=== PATIENT | male | born 1995 | race Caucasian/White ===

== ENCOUNTER 2021-05-22 16:24 | Emergency (ER) | payer SELFPAY ==
[~2021-05-22] VITALS: Ht 172.7 cm; Wt 90.7 kg
[2021-05-22 16:32] VITALS: BP 135/64
--- NOTE | 2021-05-22 16:36 | NUR ---
SEEN AND EXAMINED BY MADHURI CHIU.
[2021-05-22] MEDS ORDERED: TDAP [DIPH/PERTUSSIS/TET] 0.5 ML VIAL IM ONE ×2 (16:53→17:00)
[2021-05-22] MEDS ORDERED: LIDOCAINE 1%-EPI 1:100,000 20 ML VIAL TP ONE (17:00)
--- NOTE | 2021-05-22 17:04 | NUR ---
Patient discharged to home in stable condition. Written and verbal after care instructions given. Patient verbalizes understanding of instruction.
== END 2021-05-22 17:05 | disposition home or self-care (01) ==
LOC: ER 16:26
DX: S01.01XA Laceration without foreign body of scalp, initial encounter (principal); F17.200 Nicotine dependence, unspecified, uncomplicated; Z60.2 Problems related to living alone; V00.131A Fall from skateboard, initial encounter; Y93.51 Activity, roller skating (inline) and skateboarding; Y92.331 Roller skating rink as the place of occurrence of the external cause; Y99.8 Other external cause status
CPT/HCPCS: 12001; 90471; 90715; 99283; 99406; A6403

== ENCOUNTER 2021-05-31 18:22 | Emergency (ER) | payer BC ==
[~2021-05-31] VITALS: Ht 172.7 cm; Wt 90.7 kg
--- NOTE | 2021-05-31 18:48 | NUR ---
BIB HOME C/O NAUSEA AN VOMITING SINCE MORNING, UNABLE TO KEEP FOOD OR DRINK. PT ADMITS TO ETOH LAST NIGHT. PT DENIED CHEST PAIN OR SOB. AWAITING MD RUVALCABA.
[2021-05-31] MEDS ORDERED: IV NS 0.9% 1,000 ML BAG IV ONE (19:00)
[2021-05-31] MEDS ORDERED: FAMOTIDINE/PF INJ 20 MG/2 ML VIAL IV ONE ×2 (19:00→19:01)
--- NOTE | 2021-05-31 19:10 | NUR ---
IV LINE ESTABLISHED RAC 20G. BLOOD OBTAINED AND SENT TO LAB
--- NOTE | 2021-05-31 19:40 | NUR ---
PT GIVEN URINE CUP. PT UNABLE TO PROVIDE URINE. WILL TRY AGAIN LATER.
[2021-05-31 19:56] LABS: ALANINE AMINOTRANSFERASE 59 U/L (12-78); ALKALINE PHOSPHATASE 137 U/L (46-116); ASPARTATE AMINOTRANSFERASE 45 U/L (15-37); BILIRUBIN,DIRECT 0.1 mg/dL (0.0-0.2); BILIRUBIN,TOTAL 0.4 mg/dL (0.2-1.0); CALCIUM, SERUM 9.3 mg/dL (8.5-10.1); CARBON DIOXIDE 25 mmol/L (21-32); CHLORIDE 103 mmol/L (98-107); CREATININE 0.8 mg/dL (0.6-1.3); GLUCOSE 101 mg/dL (74-106); POTASSIUM 3.8 mmol/L (3.5-5.1); SODIUM SERUM 140 mmol/L (136-145); TOTAL PROTEIN, SERUM 8.7 g/dL (6.4-8.2); UREA NITROGEN, BLOOD 11 mg/dL (7-18)
[2021-05-31 20:04] LABS: ALBUMIN 4.3 g/dL (3.4-5.0); LIPASE 71 U/L (73-393)
[2021-05-31 20:09] LABS: BASOPHILS # (AUTO) 0.1 K/uL (0.0-0.2); BASOPHILS % (AUTO) 1.2 % (0.0-2.0); EOSINOPHILS % (AUTO) 0.5 % (0.0-6.0); HEMATOCRIT 43 % (39-51); HEMOGLOBIN 14.7 g/dL (13.5-17.5); LYMPHOCYTES # (AUTO) 1.1 K/uL (0.8-4.8); LYMPHOCYTES % (AUTO) 14.6 % (20.0-44.0); MEAN CORPUSCULAR HGB CONC 34 g/dl (31.0-36.0); MEAN CORPUSCULAR VOLUME 93 fL (80-96); MONOCYTES # (AUTO) 0.4 K/uL (0.1-1.30); NEUTROPHILS # (AUTO) 5.7 K/uL (1.8-8.9); NEUTROPHILS % (AUTO) 78.7 % (43.0-81.0); PLATELET COUNT (AUTO) 302 K/uL (150-450); RED BLOOD CELL COUNT(AUTO) 4.63 MIL/uL (4.5-6.0); WHITE BLOOD COUNT (AUTO) 7.3 K/uL (4.3-11.0)
--- NOTE | 2021-05-31 20:16 | NUR ---
PT LAYIGN IN BED, NEEDS MET
[2021-05-31] MEDS ORDERED: ONDANSETRON HCL/PF 4 MG/2 ML VIAL ONE (20:18)
[2021-05-31] MEDS ORDERED: ONDANSETRON HCL/PF - ER 4 MG/2 ML VIAL IV ONE (20:30)
--- NOTE | 2021-05-31 21:20 | NUR ---
URINE OBTAINED AND SENT TO LAB
[2021-05-31] MEDS ORDERED: ONDA4TAB5 PO (21:36)
[2021-05-31] MEDS ORDERED: FAMO-131 PO (21:36)
--- NOTE | 2021-05-31 21:45 | NUR ---
IV removed. Catheter intact and site benign. Pressure and 4x4 applied to site. No bleeding noted.
--- NOTE | 2021-05-31 21:45 | NUR ---
Patient discharged to home in stable condition. Written and verbal after care instructions given. Patient verbalizes understanding of instruction.
[2021-05-31 21:46] VITALS: BP 126/87
[2021-05-31 22:15] LABS: BILIRUBIN,URINE NEGATIVE (NEGATIVE); COLOR,URINE YELLOW (YELLOW); LEUKOCYTE ESTERASE ,URINE NEGATIVE (NEGATIVE); NITRITE, URINE NEGATIVE (NEGATIVE); PH,URINE 7.5 (5.0-8.0); PROTEIN,URINE NEGATIVE (NEGATIVE); UGLUCOSE NEGATIVE (NEGATIVE); UROBILINOGEN,URINE 0.2 EU/dL (0.2)
[2021-06-02] MEDS ORDERED: ALBUTEROL FS 2.5 MG/0.5 ML VIAL.NEB ONE (19:56)
== END 2021-05-31 21:45 | disposition home or self-care (01) ==
LOC: ER 18:27
DX: R11.2 Nausea with vomiting, unspecified (principal); F10.10 Alcohol abuse, uncomplicated; I45.10 Unspecified right bundle-branch block; R10.13 Epigastric pain; F17.200 Nicotine dependence, unspecified, uncomplicated; Z60.2 Problems related to living alone; Y90.9 Presence of alcohol in blood, level not specified
CPT/HCPCS: 36415; 71045; 80048; 80076; 81003; 83690; 84484; 85025; 93005; 96361; 96374; 96375; 99285; J2405 ×2; J3490 ×2; J7030

== ENCOUNTER 2021-06-03 11:21 | Emergency (ER) | payer BC ==
[~2021-06-03] VITALS: Ht 172.7 cm; Wt 90.7 kg
[~2021-06-03 11:21] MED LIST: FAMO-131 PO; ONDA4TAB5 PO
[2021-06-03 11:53] VITALS: BP 129/83
--- NOTE | 2021-06-03 12:25 | NUR ---
AT BEDSIDE FOR EVAL.
--- NOTE | 2021-06-03 12:32 | NUR ---
Patient discharged to home in stable condition. Written and verbal after care instructions given. Patient verbalizes understanding of instruction.
== END 2021-06-03 12:32 | disposition home or self-care (01) ==
LOC: ER 12:06
DX: S01.01XD Laceration without foreign body of scalp, subsequent encounter (principal); F17.200 Nicotine dependence, unspecified, uncomplicated; Z60.2 Problems related to living alone; Z79.899 Other long term (current) drug therapy; V00.131D Fall from skateboard, subsequent encounter

== ENCOUNTER 2021-07-05 14:35 | Emergency (ER) | payer BC ==
[~2021-07-05] VITALS: Ht 172.7 cm; Wt 88.5 kg
[2021-07-05] MEDS ORDERED: ONDA4TAB11 PO (15:05)
[2021-07-05] MEDS ORDERED: CHLO25CA22 PO (15:05)
[2021-07-05] MEDS ORDERED: OMEP40CA21 PO (15:05)
--- NOTE | 2021-07-05 16:21 | NUR ---
pt c/o nausea, vomiting, chest pain, EKG ordered, pt stated " my stomach hurts when i drink a bottle of whiskey." Educated not to drink large amounts of alcohol, to eat a nutritious diet, and to take better care of self.
[2021-07-05 16:51] VITALS: BP 132/73
== END 2021-07-05 17:00 | disposition home or self-care (01) ==
LOC: ER 14:35
DX: F10.239 Alcohol dependence with withdrawal, unspecified (principal); K29.20 Alcoholic gastritis without bleeding; F17.200 Nicotine dependence, unspecified, uncomplicated; Z60.2 Problems related to living alone; Z79.899 Other long term (current) drug therapy; Y90.9 Presence of alcohol in blood, level not specified

== ENCOUNTER 2022-03-15 00:50 | Emergency (ER) | payer BC ==
[~2022-03-15] VITALS: Ht 172.7 cm; Wt 90.7 kg
[~2022-03-15 00:50] MED LIST changes: +CHLO25CA22 PO; +OMEP40CA21 PO; +ONDA4TAB11 PO
--- NOTE | 2022-03-15 01:05 | NUR ---
BIBS FOR LUQ ABD PAIN AND N/V SINCE 499. - DIARRHEA. PT AO/X4. TOLERATING R/A WELL WITH NO RESP DISTRESS.CONNECTED PT TO POX AND MONITOR. SAFETY MEASURES IN PLACE.
[2022-03-15] MEDS ORDERED: LORAZEPAM INJ 2 MG/ML VIAL ONE (01:13)
[2022-03-15] MEDS ORDERED: ONDANSETRON HCL/PF 4 MG/2 ML VIAL ONE (01:13)
[2022-03-15] MEDS ORDERED: ONDANSETRON HCL/PF 4 MG/2 ML VIAL IVP ONE (01:30)
[2022-03-15] MEDS ORDERED: LORAZEPAM INJ 2 MG/ML VIAL IV ONE (01:30)
[2022-03-15] MEDS ORDERED: IV NS 0.9% 1,000 ML BAG IV ONE (01:30)
--- NOTE | 2022-03-15 01:36 | NUR ---
RAC #18G S/L BLOOD COLLECTED AND SENT TO LAB
[2022-03-15 01:53] LABS: BASOPHILS # (AUTO) 0.3 K/uL (0.0-0.2); BASOPHILS % (AUTO) 4.1 % (0.0-2.0); EOSINOPHILS % (AUTO) 1.6 % (0.0-6.0); HEMATOCRIT 42 % (39-51); HEMOGLOBIN 14.1 g/dL (13.5-17.5); LYMPHOCYTES # (AUTO) 1.2 K/uL (0.8-4.8); LYMPHOCYTES % (AUTO) 18.3 % (20.0-44.0); MEAN CORPUSCULAR HGB CONC 34 g/dl (31.0-36.0); MEAN CORPUSCULAR VOLUME 92 fL (80-96); MONOCYTES # (AUTO) 0.5 K/uL (0.1-1.30); MONOCYTES % (AUTO) 8.2 % (2.0-12.0); NEUTROPHILS # (AUTO) 4.5 K/uL (1.8-8.9); NEUTROPHILS % (AUTO) 67.8 % (43.0-81.0); PLATELET COUNT (AUTO) 327 K/uL (150-450); RED BLOOD CELL COUNT(AUTO) 4.58 MIL/uL (4.5-6.0); WHITE BLOOD COUNT (AUTO) 6.6 K/uL (4.3-11.0)
[2022-03-15 02:23] LABS: CALCIUM, SERUM 9.5 mg/dL (8.5-10.1); CREATININE 0.7 mg/dL (0.6-1.3); POTASSIUM 3.8 mmol/L (3.5-5.1)
[2022-03-15 02:32] LABS: ALBUMIN 4.2 g/dL (3.4-5.0); BILIRUBIN,DIRECT 0.2 mg/dL (0.0-0.2); BILIRUBIN,TOTAL 0.8 mg/dL (0.2-1.0); TOTAL PROTEIN, SERUM 8.4 g/dL (6.4-8.2)
[2022-03-15] MEDS ORDERED: ONDA4TAB5 PO (03:21)
[2022-03-15] MEDS ORDERED: CHLO25CA22 PO (03:21)
--- NOTE | 2022-03-15 03:35 | NUR ---
Patient discharged to home in stable condition. Written and verbal after care instructions given. Patient verbalizes understanding of instruction. IV removed. Catheter intact and site benign. Pressure and 4x4 applied to site. No bleeding noted. pt ambulatory with a steady gait
[2022-03-15 04:42] VITALS: BP 139/87
== END 2022-03-15 04:43 | disposition home or self-care (01) ==
LOC: ER 00:53
DX: F10.139 Alcohol abuse with withdrawal, unspecified (principal); R10.13 Epigastric pain; R10.12 Left upper quadrant pain; R11.2 Nausea with vomiting, unspecified; F17.200 Nicotine dependence, unspecified, uncomplicated; Z60.2 Problems related to living alone; Z79.899 Other long term (current) drug therapy; Y90.9 Presence of alcohol in blood, level not specified
CPT/HCPCS: 99284; 96374; 96361; 96375; 85025; 80048; 83690; 80076; 36415; J2060; J2405; J7030

== ENCOUNTER 2022-04-29 03:20 | Emergency (ER) | payer BC ==
[~2022-04-29] VITALS: Ht 172.7 cm; Wt 90.7 kg
--- NOTE | 2022-04-29 03:40 | NUR ---
BIBS. FROM HOME C/O WITHDRAWAL SYMPTOMS - NAUSEA, BODY PAIN AND MUSCLE SPASMS LAST DRINK YESTERDAY. PT A/OX4. TOLERATING R/A WELL WITH NO RESP DISTRESS. CONNECTED PT TO POX AND MONITOR. SAFETY MEASURES IN PLACE.
[2022-04-29 04:00] VITALS: BP 138/80
[2022-04-29] MEDS ORDERED: IV NS 0.9% 1,000 ML BAG IV ONE (04:00)
[2022-04-29] MEDS ORDERED: ONDANSETRON HCL/PF 4 MG/2 ML VIAL IVP ONE (04:00)
[2022-04-29] MEDS ORDERED: ONDANSETRON HCL/PF 4 MG/2 ML VIAL ONE (04:02)
[2022-04-29] MEDS ORDERED: ONDA4TAB5 PO (04:43)
== END 2022-04-29 05:33 | disposition home or self-care (01) ==
LOC: ER 03:21
DX: R11.2 Nausea with vomiting, unspecified (principal); F17.200 Nicotine dependence, unspecified, uncomplicated; Z79.899 Other long term (current) drug therapy
CPT/HCPCS: 99283; 96374; 96361; J2405; J7030